=== PATIENT | male | born 1970 | race Hispanic/Latino ===

== ENCOUNTER 2018-03-17 09:47 | Emergency (ER) | payer OTHER ==
--- NOTE | 2018-03-17 10:17 | ED PDOC ---
HPI: General Adult Time Seen by Provider: 03/17/18 10:17 Chief Complaint (Provider): oral pain, dental abscess History Per: Patient Additional Complaint(s): 48-year-old male presents to emergency department with dental pain and abscess x 4 days. Patient states this morning he woke up with swelling and redness to right side of face. He complains of chills but did not measure his temperature. Patient is tolerating liquids but has difficult time tolerating solids. He denies any active intraoral drainage. Patient states he has not been to a dentist in several years and he states he has "really bad teeth." PMD: none Past Medical History Reviewed: Historical Data, Nursing Documentation, Vital Signs Vital Signs: Last Vital Signs Temp 98.0 F 03/17/18 10:18 Pulse 110 H 03/17/18 10:18 Resp 19 03/17/18 10:18 BP 114/84 03/17/18 10:18 Pulse Ox 100 03/17/18 10:18 - Medical History PMH: No Chronic Diseases - Surgical History Surgical History: No Surg Hx - Family History Family History: States: No Known Family Hx - Living Arrangements Living Arrangements: Alone - Social History Current smoker - smoking cessation education provided: No Ex-Smoker (has not smoked in the last 12 months): Yes (quit over 5 years ago) Alcohol: None Drugs: Denies - Home Medications Home Medications: Ambulatory Orders Medication Instructions Recorded Clindamycin [Cleocin] 300 mg PO QID #28 cap 03/17/18 Ibuprofen [Motrin Tab] 800 mg PO Q8 PRN #20 tab 03/17/18 predniSONE [Prednisone] 20 mg PO BID #10 tab 03/17/18 - Allergies Allergies/Adverse Reactions: Allergies Allergy/AdvReac Type Severity Reaction Status Date / Time No Known Allergies Allergy Verified 03/17/18 10:27 Review of Systems ROS Statement: Except As Marked, All Systems Reviewed And Found Negative Constitutional: Positive for: Chills. Negative for: Fever ENT: Positive for: Mouth Pain, Mouth Swelling. Negative for: Ear Pain, Nose Congestion, Throat Pain Respiratory: Negative for: Cough Neurological: Negative for: Headache, Dizziness Physical Exam - Reviewed Nursing Documentation Reviewed: Yes Vital Signs Reviewed: Yes - Physical Exam Appears: Positive for: Well, Non-toxic, No Acute Distress Skin: Negative for: Rash Eye Exam: Positive for: Normal appearance ENT: Positive for: Other (Overall poor dentition with multiple missing teeth and multiple dental caries, diffuse swelling noted to right upper mandible gingiva consistent with dental abscess, no intraoral drainage, facial erythema and swelling noted to the right maxillary region, airway patent, uvula midline) Cardiovascular/Chest: Positive for: Regular Rate, Rhythm Respiratory: Positive for: Normal Breath Sounds. Negative for: Respiratory Distress Extremity: Positive for: Normal ROM Neurologic/Psych: Positive for: Alert, Oriented - ECG O2 Sat by Pulse Oximetry: 100 Pulse Ox Interpretation: Normal Medical Decision Making Medical Decision Making: Impression: dental abscess Plan: Pain meds declined in ED Will d/c with rx clindamycin, motrin and prednisone. Patient was instructed to follow up [place] with dentist. Disposition - Clinical Impression Clinical Impression: Dental abscess - Patient ED Disposition Is Patient to be Admitted: No Counseled Patient/Family Regarding: Diagnosis, Need For Followup, Rx Given - Disposition Referrals: [facility] [Outside] Disposition: Routine/Home Disposition Time: 10:52 Condition: STABLE Additional Instructions: Take prescription meds as directed. Contact your insurance company to determine if you have dental benefits or call [facility] for further information about their dental services. Return any time if acutely worse. Prescriptions: Clindamycin [Cleocin] 300 mg PO QID #28 cap Ibuprofen [Motrin Tab] 800 mg PO Q8 PRN #20 tab PRN Reason: Pain, Moderate (4-7) predniSONE [Prednisone] 20 mg PO BID #10 tab Instructions: Tooth Abscess (DC)
[2018-03-17 10:27] VITALS: RESP 19; TEMP 98; O2SAT 100
[2018-03-17 11:26] VITALS: BP 132/70; PULSE 90
== END 2018-03-17 11:25 | disposition home or self-care (01) ==
LOC: H.ER 09:47
DX: K04.7 Periapical abscess without sinus (principal); Z87.891 Personal history of nicotine dependence